=== PATIENT | female | born 1950 | race Caucasian/White ===

== ENCOUNTER 2016-09-01 10:41 | Outpatient (CLI) | payer BC ==
[~2016-09-01] VITALS: Ht 160 cm; Wt 63.2 kg
[~2016-09-01 10:41] MED LIST: ASPI-664 PO; HYD25 PO; MULT1CAP20 PO; PRAV40TA76 PO
[2016-09-01 10:48] VITALS: BP 141/62; PULSE 72; RESP 18; Ht 160 cm; Wt 63.2 kg
--- NOTE | 2016-09-01 12:43 | PN ---
Date/Time of Note Date/Time of Note DATE: 09/01/16 TIME: 11:44 Assessment/Plan Assessment/Plan Assessment/Plan [facility] Progress Note Date of Service: 09/01/15 Today's Impression & Plan: - Doing well without new issues. Drain check last visit showed evidence for pancreatic leak. Outputs have decreased (high ~ 120's-140's to 30's-40's). Will need a bit more time and recheck of fluid for amylase levels. May also have pancreatic insufficiency (mild symptoms; some of the pancreas enzymes coming out through the leak). May benefit from pancreas enzyme supplementation that I hope and expect to be temporary. No indication for further intervention, but will consider endoscopic pancreas duct stent placement if problem persists through next week. Explained all of the above to the patient and family and answered their questions. - Drain fluid amylase - Pancreas enzyme (Creon 24K TID with meals 30 caps 3 refills ordered) - F/u with us in 1-2 weeks - Cont current drain cares - Cont with plans for oncology consultation for consideration of systemic chemotherapy (appt with Dr. Zhu at [facility] 09/02/16) Thank you very much for allowing us to participate in the care of this very nice patient and wonderful family. If there are any questions, please feel free to contact me at . Total visit time: 20 minutes, of which more than half was spent in [id number] discussion with the patient, possibly including time to discuss issues with family, as well as coordination of care with multiple other physicians and providers. Please note: Spelling or grammatical errors in this note are likely due to EHR/ dictation systems and are not reflective of patient care quality. Also please note that the dictation timestamp of this note does not necessarily reflected time of the visit for this service. Updated Clinical Summary: The patient is a very pleasant but unfortunate 66-year-old lady without significant other comorbid issues, and especially no previous obvious episodes of pancreatitis that we can detect from review of the chart, who has had a known pancreatic mid body neck cyst with pancreatic duct dilatation and atrophy of the tail of the pancreas. Endoscopic ultrasound suggests possible intraductal papillary mucinous neoplasm versus a different kind of cystic neoplasm and the cytology is a bit concerning for malignancy. Even without a biopsy concern, I would still recommend distal pancreatectomy and splenectomy, and I agree with Dr. Espinoza's assessment of this clinical picture. Because of the patient's insurance changes, the patient has been re-routed to us and we are more than happy to offer the patient a laparoscopic, possibly with robotic assistance, distal pancreatectomy and splenectomy with intraoperative ultrasound evaluation of the liver and possible biopsies if needed. S/p laparoscopic, robotic assisted, hand-assisted, (hybrid) distal pancreatectomy and splenectomy with mobilization of splenic flexure of colon and intraoperative ultrasound of the liver on 08/05/16. Non-con CT abd/pelvis showed expected post operative findings without interveneable items. Pancreas leak ( drain fluid amylase ~ 40K; output decreased (high ~ 120's-140's to 30's-40's). Final pathology: - Invasive ductal adenocarcinoma - Perineural invasion is present - Lymph-vascular invasion: not identified - One lymph node NEGATIVE for metastatic carcinoma (0/1) - Surgical margins appear clear - Spleen with no diagnostic histopathologic abnormality - Pathologic TNM stage: pT2 N0 - See cancer case summary below for further details COMMENT: Case discussed with Dr. Catrina Corcoran on 08/09/16, Dr. Keyon Palacios on 08/09/16 and 08/12/16, and Dr. Karlene Rhoades on 08/16/[address] Sam White. Selected slides were reviewed by Drs. Jaky Corcoran and Barbie Razo (gastrointestinal pathologists) who agree with the diagnosis of invasive adenocarcinoma. Surgical Pathology Cancer Case Summary Protocol web posting date: March 2016 PANCREAS (EXOCRINE): Specimen Body and tail of pancreas Spleen Adjacent large vessels: splenic artery Procedure Partial pancreatectomy, pancreatic body and tail Other: splenectomy Tumor Site Pancreatic body Tumor Size Greatest dimension: lesion is patchy and spans an area of 2.1 cm (gross estimate) Histologic Type Ductal adenocarcinoma Histologic Grade (ductal carcinoma only) G1: Well differentiated Microscopic Tumor Extension Tumor is confined to pancreas Margins If all margins uninvolved by invasive carcinoma: Distance of invasive carcinoma from closest margin: 1 mm (gross estimate) Specify margin: posterior pancreatic margin For segmental resection (including distal pancreatectomy) specimens only: Pancreatic neck/ parenchymal margin Uninvolved by pancreatic high-grade intraepithelial neoplasia or invasive carcinoma Distance of invasive carcinoma from pancreatic neck/ parenchymal margin: 13 mm Other margin: posterior Uninvolved by invasive carcinoma Lymph-Vascular Invasion Not identified Perineural Invasion Present (A9) Pathologic Staging (pTNM) Primary Tumor (pT) pT2: Tumor limited to the pancreas, more than 2 cm in greatest dimension Regional Lymph Nodes (pN) pN0: No regional lymph node metastasis Number of Lymph Nodes Examined Specify: 1 Number of Lymph Nodes Involved Specify: 0 Additional Pathologic Findings - Intraductal papillary mucinous neoplasm with focal high grade dysplasia - Pancreatic intraepithelial neoplasia (PanIN, highest grade 2) - Chronic pancreatitis Comorbidity/PMHx list: 1. Suspicious cystic lesion of tail of pancreas 2. Hypertension 3. section on 05/1993 4. Right wrist surgery 2006 Subjective: No major events or complaints. Less incisional abdominal pain under adequate control with medications. No N/V, SOB or CP. + bowel activity; on solid food Objective: Vitals: reviewed; please also see EHR Physical Exam: Lungs: breathing comfortably without tachypnea; no audible wheezes, rales or rhonchi on gross exam Abd: Soft, non-tender, and non-distended; no peritoneal signs or guarding; incisions c/d/i w/o obvious underlying e/e/d/h; drain ss; bulb changed in the office Skin: Appears pink and feels warm to touch. Neuro: Awake, alert and follows commands appropriately Exam/Review of Systems Vital Signs Vitals Vital Signs Date Time Temp Pulse Resp B/P Pulse Ox O2 Delivery O2 Flow Rate FiO2 09/01/16 10:48 98.0 72 18 141/62 97 Room Air KARLENE RHOADES M.D. Sep 01, 2016 12:43
== END 2016-09-01 17:00 | disposition home or self-care (01) ==
LOC: HPC 10:41
PROVIDERS: ATTEND Transplant Surgery
DX: Z48.815 Encounter for surgical aftercare following surgery on the digestive system (principal); C50.919 Malignant neoplasm of unspecified site of unspecified female breast
CPT/HCPCS: G0463

== ENCOUNTER 2016-09-08 09:52 | Outpatient (CLI) | payer BC ==
[~2016-09-08] VITALS: Ht 160 cm; Wt 63.2 kg
[2016-09-08 09:55] VITALS: BP 132/60; PULSE 73; RESP 16; Ht 160 cm; Wt 63.2 kg
--- NOTE | 2016-09-08 14:38 | PN ---
Date/Time of Note Date/Time of Note DATE: 09/08/16 TIME: 12:28 Assessment/Plan Assessment/Plan Assessment/Plan [facility] Progress Note Date of Service: 09/08/15 Today's Impression & Plan: - Doing well without new issues. Drain output still 20's - 30's ml and high in amylase indicating ongoing pancreas leak. Pressing issue is timing of chemo, which will have to be done once leak has stopped. - Abd/pelvis CT - Discussions with GI re possible need for pancreas duct stenting - Cont pancreas enzyme and increase intake to TID - F/u with us in 1-2 weeks - Cont current drain cares - Cont with oncology for consideration of systemic chemotherapy ([place] Dr. Zhu's excellent input and will discuss with him) Thank you very much for allowing us to participate in the care of this very nice patient and wonderful family. If there are any questions, please feel free to contact me at . Total visit time: 20 minutes, of which more than half was spent in [id number] discussion with the patient, possibly including time to discuss issues with family, as well as coordination of care with multiple other physicians and providers. Please note: Spelling or grammatical errors in this note are likely due to EHR/ dictation systems and are not reflective of patient care quality. Also please note that the dictation timestamp of this note does not necessarily reflected time of the visit for this service. Updated Clinical Summary: The patient is a very pleasant but unfortunate 66-year-old lady without significant other comorbid issues, and especially no previous obvious episodes of pancreatitis that we can detect from review of the chart, who has had a known pancreatic mid body neck cyst with pancreatic duct dilatation and atrophy of the tail of the pancreas. Endoscopic ultrasound suggests possible intraductal papillary mucinous neoplasm versus a different kind of cystic neoplasm and the cytology is a bit concerning for malignancy. Even without a biopsy concern, I would still recommend distal pancreatectomy and splenectomy, and I agree with Dr. Espinoza's assessment of this clinical picture. Because of the patient's insurance changes, the patient has been re-routed to us and we are more than happy to offer the patient a laparoscopic, possibly with robotic assistance, distal pancreatectomy and splenectomy with intraoperative ultrasound evaluation of the liver and possible biopsies if needed. S/p laparoscopic, robotic assisted, hand-assisted, (hybrid) distal pancreatectomy and splenectomy with mobilization of splenic flexure of colon and intraoperative ultrasound of the liver on 08/05/16. Non-con CT abd/pelvis showed expected post operative findings without interveneable items. Pancreas leak ( drain fluid amylase ~ 40K; output decreased (high ~ 120's-140's to 30's-40's). Final pathology: - Invasive ductal adenocarcinoma - Perineural invasion is present - Lymph-vascular invasion: not identified - One lymph node NEGATIVE for metastatic carcinoma (0/1) - Surgical margins appear clear - Spleen with no diagnostic histopathologic abnormality - Pathologic TNM stage: pT2 N0 - See cancer case summary below for further details COMMENT: Case discussed with Dr. Catrina Corcoran on 08/09/16, Dr. Keyon Palacios on 08/09/16 and 08/12/16, and Dr. Karlene Rhoades on 08/16/[address] Sam White. Selected slides were reviewed by Drs. Jaky Corcoran and Barbie Razo (gastrointestinal pathologists) who agree with the diagnosis of invasive adenocarcinoma. Surgical Pathology Cancer Case Summary Protocol web posting date: March 2016 PANCREAS (EXOCRINE): Specimen Body and tail of pancreas Spleen Adjacent large vessels: splenic artery Procedure Partial pancreatectomy, pancreatic body and tail Other: splenectomy Tumor Site Pancreatic body Tumor Size Greatest dimension: lesion is patchy and spans an area of 2.1 cm (gross estimate) Histologic Type Ductal adenocarcinoma Histologic Grade (ductal carcinoma only) G1: Well differentiated Microscopic Tumor Extension Tumor is confined to pancreas Margins If all margins uninvolved by invasive carcinoma: Distance of invasive carcinoma from closest margin: 1 mm (gross estimate) Specify margin: posterior pancreatic margin For segmental resection (including distal pancreatectomy) specimens only: Pancreatic neck/ parenchymal margin Uninvolved by pancreatic high-grade intraepithelial neoplasia or invasive carcinoma Distance of invasive carcinoma from pancreatic neck/ parenchymal margin: 13 mm Other margin: posterior Uninvolved by invasive carcinoma Lymph-Vascular Invasion Not identified Perineural Invasion Present (A9) Pathologic Staging (pTNM) Primary Tumor (pT) pT2: Tumor limited to the pancreas, more than 2 cm in greatest dimension Regional Lymph Nodes (pN) pN0: No regional lymph node metastasis Number of Lymph Nodes Examined Specify: 1 Number of Lymph Nodes Involved Specify: 0 Additional Pathologic Findings - Intraductal papillary mucinous neoplasm with focal high grade dysplasia - Pancreatic intraepithelial neoplasia (PanIN, highest grade 2) - Chronic pancreatitis Comorbidity/PMHx list: 1. Suspicious cystic lesion of tail of pancreas 2. Hypertension 3. section on 05/1993 4. Right wrist surgery 2006 Subjective: No major events or complaints. Minimal incisional abdominal pain. No N/V, SOB or CP. + bowel activity; on solid food; drain output as above Objective: Vitals: reviewed; please also see EHR Physical Exam: Lungs: breathing comfortably without tachypnea; no audible wheezes, rales or rhonchi on gross exam Abd: Soft, non-tender, and non-distended; no peritoneal signs or guarding; incisions c/d/i w/o obvious underlying e/e/d/h; drain ss Skin: Appears pink and feels warm to touch. Neuro: Awake, alert and follows commands appropriately Exam/Review of Systems Vital Signs Vitals Vital Signs Date Time Temp Pulse Resp B/P Pulse Ox O2 Delivery O2 Flow Rate FiO2 09/08/16 09:55 98.6 73 16 132/60 95 Room Air KARLENE RHOADES M.D. Sep 08, 2016 14:38
== END 2016-09-08 16:51 | disposition home or self-care (01) ==
LOC: HPC 09:52
PROVIDERS: ATTEND Transplant Surgery
DX: K91.89 Other postprocedural complications and disorders of digestive system (principal); C25.9 Malignant neoplasm of pancreas, unspecified; K86.1 Other chronic pancreatitis; I10 Essential (primary) hypertension
CPT/HCPCS: G0463

== ENCOUNTER 2016-09-15 10:25 | Outpatient (CLI) | payer BC ==
[~2016-09-15] VITALS: Ht 160 cm; Wt 63.2 kg
[2016-09-15 10:30] VITALS: BP 129/60; PULSE 71; RESP 16; Ht 160 cm; Wt 63.2 kg
--- NOTE | 2016-09-15 12:21 | PN ---
Date/Time of Note Date/Time of Note DATE: 09/15/16 TIME: 12:12 Assessment/Plan Assessment/Plan Assessment/Plan [facility] Progress Note Date of Service: 09/15/15 Today's Impression & Plan: - Doing well without new issues. Drain output 10-20's ml per day; after full discussion of options and risks/benefits, patient agreed with my recommendation of d/c'ing the drain today (recommendation based on low output, very encouraging CT results and overall clinical picture); patient and family clearly understood small chance of abscess or other complications possibly requiring replacement of perc drain or other interventions such as endoscopic pancreatic duct stenting, but my estimation of that risk was sufficiently low to recommend removal of the drain. Drain was therefore d/c'ed in the office without any difficulty. - observe carefully at home for the next few days and call if any changes in clinical condition - Plan start of chemo in 2-3 weeks - Cont pancreas enzyme intake TID; possibly wean off in 2-3 weeks once we make sure no more issues with pancreas leak - F/u with us in 1-2 weeks - Review CT findings re tip of appendix and thickened endometrium with Dr. Palacios and address accordingly (I do not see any surgical issues at this time regarding these two, but the uterus may need further attention) Thank you very much for allowing us to participate in the care of this very nice patient and wonderful family. If there are any questions, please feel free to contact me at . Total visit time: 20 minutes, of which more than half was spent in [id number] discussion with the patient, possibly including time to discuss issues with family, as well as coordination of care with multiple other physicians and providers. Please note: Spelling or grammatical errors in this note are likely due to EHR/ dictation systems and are not reflective of patient care quality. Also please note that the dictation timestamp of this note does not necessarily reflected time of the visit for this service. Updated Clinical Summary: The patient is a very pleasant but unfortunate 66-year-old lady without significant other comorbid issues, and especially no previous obvious episodes of pancreatitis that we can detect from review of the chart, who has had a known pancreatic mid body neck cyst with pancreatic duct dilatation and atrophy of the tail of the pancreas. Endoscopic ultrasound suggests possible intraductal papillary mucinous neoplasm versus a different kind of cystic neoplasm and the cytology is a bit concerning for malignancy. Even without a biopsy concern, I would still recommend distal pancreatectomy and splenectomy, and I agree with Dr. Espinoza's assessment of this clinical picture. Because of the patient's insurance changes, the patient has been re-routed to us and we are more than happy to offer the patient a laparoscopic, possibly with robotic assistance, distal pancreatectomy and splenectomy with intraoperative ultrasound evaluation of the liver and possible biopsies if needed. S/p laparoscopic, robotic assisted, hand-assisted, (hybrid) distal pancreatectomy and splenectomy with mobilization of splenic flexure of colon and intraoperative ultrasound of the liver on 08/05/16. Non-con CT abd/pelvis showed expected post operative findings without interveneable items. Pancreas leak ( drain fluid amylase ~ 40K; output decreased (high ~ 120's-140's to 30's-40's). Final pathology: - Invasive ductal adenocarcinoma - Perineural invasion is present - Lymph-vascular invasion: not identified - One lymph node NEGATIVE for metastatic carcinoma (0/1) - Surgical margins appear clear - Spleen with no diagnostic histopathologic abnormality - Pathologic TNM stage: pT2 N0 - See cancer case summary below for further details COMMENT: Case discussed with Dr. Catrina Corcoran on 08/09/16, Dr. Keyon Palacios on 08/09/16 and 08/12/16, and Dr. Karlene Rhoades on 08/16/[address] Sam White. Selected slides were reviewed by Drs. Jaky Corcoran and Barbie Razo (gastrointestinal pathologists) who agree with the diagnosis of invasive adenocarcinoma. Surgical Pathology Cancer Case Summary Protocol web posting date: March 2016 PANCREAS (EXOCRINE): Specimen Body and tail of pancreas Spleen Adjacent large vessels: splenic artery Procedure Partial pancreatectomy, pancreatic body and tail Other: splenectomy Tumor Site Pancreatic body Tumor Size Greatest dimension: lesion is patchy and spans an area of 2.1 cm (gross estimate) Histologic Type Ductal adenocarcinoma Histologic Grade (ductal carcinoma only) G1: Well differentiated Microscopic Tumor Extension Tumor is confined to pancreas Margins If all margins uninvolved by invasive carcinoma: Distance of invasive carcinoma from closest margin: 1 mm (gross estimate) Specify margin: posterior pancreatic margin For segmental resection (including distal pancreatectomy) specimens only: Pancreatic neck/ parenchymal margin Uninvolved by pancreatic high-grade intraepithelial neoplasia or invasive carcinoma Distance of invasive carcinoma from pancreatic neck/ parenchymal margin: 13 mm Other margin: posterior Uninvolved by invasive carcinoma Lymph-Vascular Invasion Not identified Perineural Invasion Present (A9) Pathologic Staging (pTNM) Primary Tumor (pT) pT2: Tumor limited to the pancreas, more than 2 cm in greatest dimension Regional Lymph Nodes (pN) pN0: No regional lymph node metastasis Number of Lymph Nodes Examined Specify: 1 Number of Lymph Nodes Involved Specify: 0 Additional Pathologic Findings - Intraductal papillary mucinous neoplasm with focal high grade dysplasia - Pancreatic intraepithelial neoplasia (PanIN, highest grade 2) - Chronic pancreatitis Comorbidity/PMHx list: 1. Suspicious cystic lesion of tail of pancreas 2. Hypertension 3. section on 05/1993 4. Right wrist surgery 2006 Subjective: No major events or complaints. No sig abdominal pain. No RLQ pain. No vaginal bleeding. No N/V, SOB or CP. + bowel activity; on solid food; drain output as above Objective: Vitals: reviewed; please also see EHR Physical Exam: Lungs: breathing comfortably without tachypnea; no audible wheezes, rales or rhonchi on gross exam Abd: Soft, non-tender, and non-distended; no peritoneal signs or guarding; incisions c/d/i w/o obvious underlying e/e/d/h; drain ss; drain d/c's at bedside without difficulty Skin: Appears pink and feels warm to touch. Neuro: Awake, alert and follows commands appropriately Exam/Review of Systems Vital Signs Vitals Vital Signs Date Time Temp Pulse Resp B/P Pulse Ox O2 Delivery O2 Flow Rate FiO2 09/15/16 10:30 97.8 71 16 129/60 98 Room Air KARLENE RHOADES M.D. Sep 15, 2016 12:21
== END 2016-09-15 16:45 | disposition home or self-care (01) ==
LOC: HPC 10:25
PROVIDERS: ATTEND Transplant Surgery
DX: C50.919 Malignant neoplasm of unspecified site of unspecified female breast (principal); I10 Essential (primary) hypertension; K85.90 Acute pancreatitis without necrosis or infection, unspecified; N90.1 Moderate vulvar dysplasia
CPT/HCPCS: G0463

== ENCOUNTER → 2016-09-29 | Outpatient (CLI) | payer BC | END | disposition home or self-care (01) | LOC: HPC 08:38 | PROVIDERS: ATTEND Transplant Surgery | DX: C50.919 Malignant neoplasm of unspecified site of unspecified female breast (principal); K85.90 Acute pancreatitis without necrosis or infection, unspecified; I10 Essential (primary) hypertension ==